=== PATIENT | female | born 1980 ===

== ENCOUNTER → 2019-02-18 | Outpatient (CLI) | payer OTHER ==
[~2019-02-18] MED LIST: FLONASE16 G1 NS; OMEPRAZOLE40 MG PO; ZANTAC300 MG PO
== END | disposition home or self-care (01) ==
LOC: NUCLEAR 07:00
DX: K31.84 Gastroparesis (principal)
CPT/HCPCS: 78264; A9541

== ENCOUNTER 2021-08-06 07:21 | Outpatient (CLI) | payer OTHER | END 2021-08-06 09:19 | disposition home or self-care (01) | LOC: RX STUDY 07:21 → MAMO-SONO 07:45 → RX STUDY 09:19 | PROVIDERS: ATTEND Surgery | DX: K21.9 Gastro-esophageal reflux disease without esophagitis (principal); R22.1 Localized swelling, mass and lump, neck ==